=== PATIENT | male | born 1995 | race Caucasian/White ===

== ENCOUNTER 2020-03-14 11:39 | Emergency (ER) | payer BC ==
[2020-03-14 12:24] VITALS: BP 120/57
== END 2020-03-14 12:26 | disposition home or self-care (01) ==
LOC: ED 11:39
DX: S01.04XA Puncture wound with foreign body of scalp, initial encounter (principal); Y92.828 Other wilderness area as the place of occurrence of the external cause
CPT/HCPCS: 90715

== ENCOUNTER → 2020-11-19 | Outpatient (CLI) | payer BC ==
[2020-11-19 15:43] LABS: EOS # 0.1 (0.04-0.40); EOS % 0.7 % (0.0-4.0); HEMATOCRIT 40.4 % (42.0-52.0); HEMOGLOBIN 13.7 g/dL (13.5-18.0); LYMPH# 1.6 (1.50-4.00); MEAN CELL VOLUME 90 fl (78-100); MEAN CORPUSCULAR HEMOGLOBIN 30 pg (27-31); MEAN CORPUSCULAR HGB CONC 34 g/dL (33-37); MONO # 0.9 (0.20-0.80); NEU # 4.6 (1.40-6.50); PLATELET COUNT 219 K/mm3 (130-400); RED BLOOD COUNT 4.51 M/mm3 (4.20-5.60); RED CELL DISTRIBUTION WIDTH 11.7 % (11.5-14.5); WHITE BLOOD COUNT 7.1 K/mm3 (4.8-10.8)
[2020-11-19 15:55] LABS: ALBUMIN 4.5 g/dL (3.5-5.0); POTASSIUM 4.7 mmol/L (3.5-5.1)
[2020-11-19 15:56] LABS: CALCIUM 9.1 mg/dL (8.3-10.5)
[2020-11-19 15:58] LABS: TOTAL PROTEIN 7.6 g/dL (6.4-8.3)
[2020-11-19 15:59] LABS: TOTAL BILIRUBIN 0.5 mg/dL (0.2-1.2)
== END ==
LOC: LAB 11:01
PROVIDERS: Nurse Practitioner
DX: R53.83 Other fatigue (principal)